=== PATIENT | female | born 1955 | race Caucasian/White ===

== ENCOUNTER 2023-07-29 14:37 | Emergency (ER) | payer MEDICARE, SELFPAY ==
[2023-07-29 14:43] VITALS: BP 120/82
--- NOTE | 2023-07-29 15:23 | ED.GENMED ---
History of Present Illness
General
Chief Complaint: Vaginal Bleeding
Source: patient
Time Seen by Provider: 07/29/23 15:04
Travel History
Have you had any contact with someone who has COVID-19?: No
Do you have any symptoms of coronavirus? Fever > 100 degrees, chills, cough, shortness of breath, sore throat, loss of taste or smell, muscle aches, or headache?: No
History of Present Illness
History of Present Illness:
68-year-old female with past medical history of hypertension presenting to the emergency department for evaluation at the request of her primary care provider after she had a noted abscess to her right groin/vaginal area. Patient states that this
has been present for around 48 hours and gradually increased in size. She notes a history of similar many years ago. Denies any fevers, chills, rigors. Believes this all likely started from when she was in [place] doing a lot of walking and
hiking. She denies any history of diabetes. No other concerns.
Past History
Past History
ED Past Medical History: HTN, Hypercholesterolemia and Other (Kidney stones)
ED Past Surgical History: Other (Noncontributory); Negative Appendectomy, Bowel resection, Brain or Cardiac
Social History
Tobacco: Smoker
Alcohol: None
Drug: None
Personal:
Living: with family
Employment: Employed
Family History
Family History: Other (Noncontributory)
Review of Systems
Review of Systems
All Other Systems: ROS reviewed and negative except as documented in HPI and ROS
Phy Exam
Physical Exam
Physical Exam:
GENERAL: Alert , in no apparent distress
EYE: conjunctiva clear
Head: Normocephalic atraumatic
NECK: Supple,
ENT: mmm.
LUNGS: no acute respiratory distress
Pelvic exam: Chaperoned by ED ANTONIA Bangura: Patient has a small to moderate sized abscess measuring approximately 1-1/2 cm in size with surrounding erythema/induration, increased warmth and tenderness to palpation. The abscess is mainly located along
the right inguinal region and does not extend into the outer labia or vulva
NEUROLOGICAL: Alert and oriented
SKIN: Warm and dry, skin intact.
MUSCULOSKELETAL: well perfused.
PSYCH: Normal and appropriate interaction.
Scores
Heart Failure Risk
Heart Failure Risk Score: Not Applicable
Heart Score for Chest Pain Patients
STEMI patient?: Not applicable
Withdrawal Assessment of Alcohol
Withdrawal Assessment Completed?: Not applicable
Course
Vital Signs
Initial and Last Documented VS:
Initial Vital Signs
Temp Pulse Resp BP Pulse Ox
98.3 F 90 16 120/82 98
07/29/23 14:43 07/29/23 14:43 07/29/23 14:43 07/29/23 14:43 07/29/23 14:43
Last Documented Vital Signs
Temp Pulse Resp BP Pulse Ox
98.3 F 90 16 120/82 98
07/29/23 14:43 07/29/23 14:43 07/29/23 14:43 07/29/23 14:43 07/29/23 14:43
Procedures
Incision/Drainage/Joint Aspiration
Right Groin:
Anethesia: 1% Lidocaine
Preparation: cleaned with Hibiclens
Type of procedure: incise
Nature of site: abscess
Description of abscess: less than 3cm
Loculations broken up: Yes
How much fluid was obtained?: small amount
Fluid description: purulent and blood tinged
Treatment: left open for drainage
MDM/Problems Addressed
Differential Diagnosis Includes:
Abscess, cellulitis, cyst
MDM/Problems Addressed:
68-year-old female presenting to the emergency department for evaluation of right-sided inguinal infection. Saw primary care provider today who was concerned for abscess and due to the location of the abscess sent patient to the ER for further
evaluation. Incision and drainage performed as above. This was chaperoned by KEMI Madden for the entirety of the procedure. Will place patient on doxycycline. Continue warm compresses, NSAIDs/Tylenol as needed for pain. Patient will follow-up
with primary care provider. If anything is to worsen in the meantime she will present back to the ER for further evaluation.
*Pulse Oximetry
Patient hypoxic: no
*Critical Care Note
Total Time (30-74mins, 75-104mins- exclusive of procedures): Not Applicable
Patient Management
Discussion with other providers: PCP
Escalation/DeEscalation of care consider admission/obs:
I notified patient's primary care provider of the ER workup and procedure.
ED Attending Note
-
Portions of this chart may have been created with voice recognition software.� Occasional wrong word or��sound alike� substitutions may have occurred due to the inherent limitations of voice recognition software.
Discharge Plan
Departure
Patient Disposition: Home (Routine Discharge)
Date of Disposition: 07/29/23
Time of Disposition: 15:23
Patient with high blood pressure during this ER visit?: No
Discharge Problem:
Abscess of right groin
Instructions: Abscess Incision and Drainage (DC)
Prescriptions:
New
doxycycline hyclate 100 mg tablet
100 mg PO BID Qty: 20 0RF
No Action
lisinopril 10 MG tablet
10 mg PO HS
furosemide 20 MG tablet
20 mg PO DAILYPRN PRN (Reason: leg swelling)
rosuvastatin 10 MG tablet
20 mg PO HS
clopidogrel 75 MG tablet
75 mg PO DAILY Qty: 30 2RF
aspirin 81 MG tablet,delayed release (DR/EC)
81 mg PO DAILY 0RF
varenicline 0.5 MG tablet
1 mg PO BID
Referrals:
Trang Miller DO [Family Provider] -
Discharge Date and Time
Print Language: LITHUANIAN
== END 2023-07-29 15:41 | disposition home or self-care (01) ==
LOC: EMR 14:37
PROVIDERS: EMERGENCY PHYSICIAN Emergency Medicine
DX: L02.214 Cutaneous abscess of groin (principal); E03.9 Hypothyroidism, unspecified; I10 Essential (primary) hypertension; E78.00 Pure hypercholesterolemia, unspecified; F17.200 Nicotine dependence, unspecified, uncomplicated; N93.9 Abnormal uterine and vaginal bleeding, unspecified; Z87.442 Personal history of urinary calculi; Z90.49 Acquired absence of other specified parts of digestive tract
CPT/HCPCS: 99282; 10060

== ENCOUNTER 2023-09-12 10:33 | Emergency (ER) | payer MEDICARE, SELFPAY ==
[2023-09-12 10:36] VITALS: BP 157/96
--- NOTE | 2023-09-12 11:52 | ED.GENMED ---
History of Present Illness
General
Chief Complaint: Skin Problem
Source: patient
Exam Limitations: none
Time Seen by Provider: 09/12/23 10:58
Nursing documentation reviewed up to this point in time: agreed with
History of Present Illness
History of Present Illness:
68-year-old female painful swelling in her left posterior buttock
For a few days no fever no drainage saw her PCP told to follow-up with a mobile sales assistant
Similar on the right side requiring drainage a few weeks ago, used to get these frequently when she was younger her niece gets services at [employer]
Not known to be diabetic
Past History
Past History
ED Past Medical History: HTN, Hypercholesterolemia and Other (Kidney stones)
ED Past Surgical History: Other (Noncontributory); Negative Appendectomy, Bowel resection, Brain or Cardiac
Social History
Tobacco: Smoker
Alcohol: None
Drug: None
Personal:
Living: with family
Employment: Employed
Family History
Family History: Other (Noncontributory)
Review of Systems
Review of Systems
All Other Systems: Not applicable
Constitutional: Denies fever
EENT: Reports no symptoms
Respiratory: Reports no symptoms
Cardiac: Reports no symptoms
Skin: Reports other (Painful swelling)
Phy Exam
Physical Exam
Physical Exam:
Physical Exam
General: no apparent distress, not acutely ill
Neck: supple. no meningeal signs. normal psoterior pharynx
Heart: s1/s2 regular rate and rhythm, no murmur. equal radial pulses.
Lungs: no acute respiratory distress. clear bilaterally
Neuro: alert and oriented. no focal neurological deficits
Skin: Dime size area of tenderness and fluctuance surrounding cellulitis in the left lower buttock no extension to the labia nor rectum
Psychiatric: well kept. interactive and cooperative
Extremities: no edema
Course
Orders/Labs/Results
Orders:
Orders
09/12/23 12:48
Doxycycline [Vibramycin] 100 mg PO NOW STA
Vital Signs
Initial and Last Documented VS:
Initial Vital Signs
Temp Pulse Resp BP Pulse Ox
98.2 F 84 16 157/96 96
09/12/23 10:36 09/12/23 10:36 09/12/23 10:36 09/12/23 10:36 09/12/23 10:36
Last Documented Vital Signs
Temp Pulse Resp BP Pulse Ox
98.2 F 71 18 97/59 97
09/12/23 10:36 09/12/23 13:09 09/12/23 13:09 09/12/23 13:09 09/12/23 13:09
Procedures
Incision/Drainage/Joint Aspiration
Left Buttock:
Anethesia: 1% Lidocaine
Preparation: cleaned with Betadine
Type of procedure: drain
Nature of site: abscess
Description of abscess: less than 3cm
Loculations broken up: Yes
How much fluid was obtained?: small amount
Fluid description: purulent
Treatment: left open for drainage
*Critical Care Note
Total Time (30-74mins, 75-104mins- exclusive of procedures): Not Applicable
ED Attending Note
-
Portions of this chart may have been created with voice recognition software.� Occasional wrong word or��sound alike� substitutions may have occurred due to the inherent limitations of voice recognition software.
Discharge Plan
Departure
Patient Disposition: Home (Routine Discharge)
Date of Disposition: 09/12/23
Time of Disposition: 12:48
Patient with high blood pressure during this ER visit?: No
Condition: Good
Discharge Problem:
Abscess
Instructions: Skin Abscess
Prescriptions:
New
doxycycline hyclate 100 mg capsule
100 mg PO BID Qty: 10 0RF
No Action
lisinopril 10 MG tablet
10 mg PO HS
furosemide 20 MG tablet
20 mg PO DAILYPRN PRN (Reason: leg swelling)
rosuvastatin 10 MG tablet
20 mg PO HS
clopidogrel 75 MG tablet
75 mg PO DAILY Qty: 30 2RF
aspirin 81 MG tablet,delayed release (DR/EC)
81 mg PO DAILY 0RF
varenicline 0.5 MG tablet
1 mg PO BID
doxycycline hyclate 100 mg tablet
100 mg PO BID Qty: 20 0RF
Referrals:
Valarie Pierre PA-C [Family Provider] -
Interventions
Interventions:
*Risk Screen - Suicide Last Done: 09/12/23 13:25
*General Assessment Last Done: 09/12/23 11:41
*Neglect/Abuse Screening Last Done: 09/12/23 13:25
ED- Fall Risk Assessment Last Done: 09/12/23 13:25
*ED COVID-19 Vaccine History Last Done: 09/12/23 13:25
*Nursing Disposition Last Done: 09/12/23 13:25
ED-Skin Assessment Last Done: 09/12/23 11:41
Discharge Date and Time
Discharge Date/Time: 09/12/23 13:26
Print Language: DANISH
[2023-09-12] MEDS: VIBRAMYCIN 100 MG PO (13:08)
[2023-09-12 13:09] VITALS: BP 97/59
== END 2023-09-12 13:26 | disposition home or self-care (01) ==
LOC: EMR 10:33
PROVIDERS: EMERGENCY PHYSICIAN Emergency Medicine; FAMILY PHYSICIAN Student in an Organized Health Care Education/Training Program
DX: L02.31 Cutaneous abscess of buttock (principal); I10 Essential (primary) hypertension; E78.00 Pure hypercholesterolemia, unspecified; M19.90 Unspecified osteoarthritis, unspecified site; F17.200 Nicotine dependence, unspecified, uncomplicated; Z85.828 Personal history of other malignant neoplasm of skin; Z87.442 Personal history of urinary calculi
CPT/HCPCS: 99283; 10060

== ENCOUNTER → 2023-11-13 08:57 | Outpatient (REF) | payer MEDICARE, SELFPAY | LOC: RAD 08:57 | PROVIDERS: ATTENDING PHYSICIAN Surgery Vascular Surgery; FAMILY PHYSICIAN Student in an Organized Health Care Education/Training Program | DX: I77.1 Stricture of artery (principal); I73.9 Peripheral vascular disease, unspecified | CPT/HCPCS: 93922; 93925; 93978 ==

== ENCOUNTER → 2023-11-28 09:34 | Outpatient (REF) | payer MEDICARE, SELFPAY | LOC: RAD 09:34 | PROVIDERS: ATTENDING PHYSICIAN Surgery Vascular Surgery; FAMILY PHYSICIAN Student in an Organized Health Care Education/Training Program | DX: I77.1 Stricture of artery (principal) | CPT/HCPCS: 93923; 93930 ==

== ENCOUNTER → 2024-02-10 18:18 | Outpatient (REF) | payer MEDICARE, SELFPAY | LOC: WDC 18:18 | PROVIDERS: ATTENDING PHYSICIAN Student in an Organized Health Care Education/Training Program | DX: Z12.31 Encounter for screening mammogram for malignant neoplasm of breast (principal) | CPT/HCPCS: 77063; 77067 ==

== ENCOUNTER → 2024-07-19 13:13 | Outpatient (REF) | payer MEDICARE, SELFPAY | LOC: HWRAD 13:13 | PROVIDERS: ATTENDING PHYSICIAN Student in an Organized Health Care Education/Training Program | DX: R05.9 Cough, unspecified (principal) | CPT/HCPCS: 71046 ==

== ENCOUNTER → 2024-12-06 09:53 | Outpatient (REF) | payer MEDICARE, SELFPAY | LOC: RAD 09:53 | PROVIDERS: ATTENDING PHYSICIAN Surgery Vascular Surgery; FAMILY PHYSICIAN Student in an Organized Health Care Education/Training Program | DX: I77.1 Stricture of artery (principal); I73.9 Peripheral vascular disease, unspecified | CPT/HCPCS: 93922; 93923; 93930; 93978 ==